=== PATIENT | male | born 1975 | race Caucasian/White ===

== ENCOUNTER 2018-06-06 18:26 | Emergency (ER) | payer MEDICARE, MEDICAID ==
--- NOTE | 2018-06-06 20:05 | ED Physician Chart ---
ED Chief Complaint/HPI - Patient Information Date Seen:: 06/06/18 Time Seen:: 19:20 Chief Complaint:: HEAD TRAUMA History of Present Illness:: THIS IS A 42 YO BLIND CP PATIENT BIB HIS MOTHER WHO STATED THAT YESTERDAY HE FELL FROM WHEEL CHAIR AND HIT HIS HEAD WITHOUT A LOSS OF CONSCIOUSNESS. SHE IS NOW CONCERNED IF HE HAD BRAIN DAMAGE FROM THE FALL. Allergies:: Allergies Allergy/AdvReac Type Severity Reaction Status Date / Time UNOBTN - Unobtainable Allergy Verified 06/06/18 19:18 Vitals:: Vital Signs - 8 hr 06/06/18 19:18 Temp 98.1 F HR 65 RR 18 BP 95/52 O2 Sat % 100 Historian:: Family Member (MOTHER) Review:: Nurse's Note Reviewed ED Review of Systems - Review of Systems General/Constitutional: No fever, No chills, No weight loss, No weakness, No diaphoresis, No edema, No loss of appetite, Other (THE PATIENT IS UNABLE TO GIVE ANY REVIEW OF SYSTEMS) Skin: No skin lesions, No rash, No bruising Head: No headache, No light-headedness Eyes: No loss of vision, No pain, No diplopia ENT: No earache, No nasal drainage, No sore throat, No tinnitus Neck: No neck pain, No swelling, No thyromegaly, No stiffness, No mass noted Cardio Vascular: No chest pain, No palpitations, No PND, No orthopnea, No edema Pulmonary: No SOB, No cough, No sputum, No wheezing GI: No nausea, No vomiting, No diarrhea, No pain, No melena, No hematochezia, No constipation, No hematemesis G/U: No dysuria, No frequency, No hematuria Musculoskeletal: No bone or joint pain, No back pain, No muscle pain Endocrine: No polyuria, No polydipsia Psychiatric: No prior psych history, No depression, No anxiety, No suicidal ideation Hematopoietic: No bruising, No lymphadenopathy Allergic/Immuno: No urticaria, No angioedema Neurological: No syncope, No focal symptoms, No weakness, No paresthesia, No headache, No seizure, No dizziness, No confusion, No vertigo ED Past Medical History - Past Medical History Obtainable: Yes Past Medical History: Other (CERBRAL PALSY RETARTED PATIENT) Family History: None Social History: Non Smoker, No Alcohol, No Drug Use, Lives With Parents Surgical History: None Psychiatricy History: None Medication: Reviewed Family Medical History - Family Member Maternal Grandfather History Unknown: Yes Ethnicity: Living Status: Still Living Hx Family Congestive Heart Failure: Yes ED Physical Exam - Physical Examination General/Constitutional: Awake, Well-developed, well-nourished, Alert, No distress, GCS 15, Non-toxic appearing, Ambulatory Other Gen/Cons comments:: SLOW MENTALLY AND ALERT Head: Atraumatic Other Head comments:: THERE IS NO BROKEN SKIN OR HEMATOMA ON THE SCALP. Eyes: Lids, conjuctiva normal, PERRL, EOMI Other Eyes comments:: THIS PATIENT IS BLIND Skin: Nl inspection, No rash, No skin lesions, No ecchymosis, Well hydrated, No lymphadenopathy ENMT: External ears, nose nl, Nasal exam nl, Lips, teeth, gums nl Neck: Nontender, Full ROM w/o pain, No JVD, No nuchal rigidity, No bruit, No mass, No stridor Respiratory: Nl effort/Exclusion, Clear to Auscultation, No Wheeze/Rhonchi/Rales Cardio Vascular: RRR, No murmur, gallop, rubs, NL S1 S2 GI: No tenderness/rebounding/guarding, No organomegaly, No hernia, Normal BS's, Nondistended, No mass/bruits, No McBurney tenderness : No CVA tenderness Extremities: No tenderness or effusion, Full ROM, normal strength in all extremities, No edema, Normal digits & nails Neuro/Psych: Alert/oriented, DTR's symmetric, Normal sensory exam, Normal motor strength, Judgement/insight normal, Mood normal, Normal gait, No focal deficits Misc: Normal back, No paraspinal tenderness ED Labs/Radiology/EKG Results - Radiology Results Results: CT SCAN OF THE HEAD = NO ACUTE DISEASE NOTED. ED Assessment - Assessment General Assessment: HEAD CONTUSION ED Septic Shock - . Is Septic Shock (SBP<90, OR Lactate>4 mmol\L) present?: No - <6hrs of presentation: Vital Signs: Vital Signs - 8 hr 06/06/18 19:18 Temp 98.1 F HR 65 RR 18 BP 95/52 O2 Sat % 100 ED Reassessment (Disposition) - Reassessment Reassessment Condition:: Improved - Diagnosis Diagnosis:: HEAD CONTUSION - Aftercare/Follow up Instructions Aftercare/Follow-Up Instructions:: Counseled pt regarding lab results/diagnosis & need follow up, Refer to Discharge Instructions, Counseled pt & family regarding lab results/diagnosis & need follow up - Patient Disposition Discharge/Transfer:: Home Condition at Disposition:: Improved ED Discharge Plan - Patient Disposition Admit/Discharge/Transfer: PT DISCHARGED HOME Condition at Disposition: Improved
--- NOTE | 2018-06-07 08:10 | Diagnostic Imaging Report ---
Head CT without intravenous contrast Indication: Trauma Comparison: None Technique: Axial images were obtained from the vertex to the skull base without IV contrast. Coronal reconstructions were made. Total DLP: [id number], [id number] FINDINGS: Images of the brain obtained without contrast demonstrate abnormal configuration of the gyri and ventricles with what appears to be a isabel of the corpus callosum. Assessment for midline shift is limited due to patient's congenital abnormality. There is no evidence of mass effect. There is no evidence of an acute hemorrhage. No hydrocephalus. Calcified shrunken bilateral globes are noted. No evidence of a skull fracture or focal soft tissue swelling. The visualized paranasal sinuses demonstrate minimal mucosal thickening. IMPRESSION: No evidence of acute intracranial hemorrhage. Abnormal configuration of the gyri and ventricles. 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 Please correlate with patient's clinical history and old examinations. No mass lesion or mass effect identified.
== END 2018-06-06 20:45 | disposition home or self-care (01) ==
LOC: ER 18:26
DX: S00.93XA Contusion of unspecified part of head, initial encounter (principal); W05.0XXA Fall from non-moving wheelchair, initial encounter; Y93.89 Activity, other specified; Y92.89 Other specified places as the place of occurrence of the external cause; Y99.8 Other external cause status
CPT/HCPCS: 70450-TC; Z7502